=== PATIENT | female | born 1975 | race Caucasian/White ===

== ENCOUNTER 2017-05-07 14:28 | Emergency (ER) | payer BC, OTHER ==
[~2017-05-07] VITALS: Ht 170.2 cm; Wt 109.0 kg
[2017-05-07 14:30] VITALS: Ht 170.2 cm; Wt 109.0 kg
[2017-05-07] MEDS ORDERED: KETOROLAC 30 MG INJ IM STA (14:47)
[2017-05-07] MEDS ORDERED: HYDROCODONE/APAP (5/325) TAB PO ONE (15:00)
[2017-05-07] MEDS ORDERED: BACL10TA PO (15:02)
[2017-05-07] MEDS ORDERED: HYDR-906 PO (15:02)
[2017-05-07] MEDS ORDERED: IBUP-1542 PO (15:02)
--- NOTE | 2017-05-07 15:08 | ERD ---
ER Documentation Chief Complaint Chief Complaint pt bib family with c/o back pain since Thursday worse since yesterday HPI Patient is a 41-year-old female with no past medical history presents to the ED for concerns of lower back pain radiating down her right leg which started 4 days ago. Patient states she does recall lifting heavy chairs previous to her back pain starting. Patient states she saw a chiropractor yesterday and had an adjustment which did temporarily relieve her pain however it became worse today. Patient states the pain is worse when attempting to lie down or standing up. Patient denies taking any medications for symptoms. Patient denies any falls or trauma. Patient denies any fevers, chills, dysuria, frequency, hematuria, saddle anesthesia, urinary incontinence or stool incontinence. States that she is on her last day of her menstrual period. ROS All systems reviewed and are negative except as per history of present illness. Medications Home Meds Active Scripts Baclofen* (Baclofen*) 10 Mg Tablet, 10 MG PO Q8, #20 TAB Prov:RAINER OLEARY PA-C 05/07/17 Ibuprofen* (Motrin*) 600 Mg Tab, 600 MG PO Q6, #30 TAB Prov:RAINER OLEARY PA-C 05/07/17 Hydrocodone/Acetaminophen ([place] 5-325 Tablet) 1 Each Tablet, 1 TAB PO Q6H Y for PAIN, #7 TAB Prov:RAINER OLEARY PA-C 05/07/17 Allergies Allergies: Coded Allergies: No Known Allergy (Unverified , 04/24/14) PMhx/Soc Medical and Surgical Hx: pt denies Medical Hx History of Surgery: Yes (D&C) Anesthesia Reaction: No Hx Alcohol Use: Yes (OCCASSIONAL/SOCIAL ) Hx Substance Use: No Hx Tobacco Use: No Smoking Status: Never smoker Physical Exam Vitals Vital Signs Date Time Temp Pulse Resp B/P Pulse Ox O2 Delivery O2 Flow Rate FiO2 05/07/17 14:30 99.0 97 16 151/93 98 Physical Exam GENERAL: Well-developed, well-nourished female. Appears in no acute distress. HEAD: Normocephalic, atraumatic. EYES: Pupils are equally reactive bilaterally. EOMs grossly intact. No conjunctival erythema. NECK: Supple. No meningismus. Normal range of motion of the neck. No cervical midline tenderness noted. LUNG: Clear to auscultation bilaterally. No rhonchi, wheezing, rales or coarse breath sounds. HEART: Regular rate and rhythm. No murmurs, rubs or gallops. BACK: No midline tenderness. Tender to palpation of bilateral lumbar paraspinal muscles. Patient unable to lay down flat secondary to pain. EXTREMITIES: Equal pulses bilaterally. No peripheral clubbing, cyanosis or edema. NEUROLOGIC: Alert and oriented. Moving all four extremities without any difficulty. Normal speech. Steady gait. SKIN: Normal color. Warm and dry. No rashes or lesions. Results 24 hrs Current Medications Medications (Trade) Dose Ordered Sig/Sanaz Route PRN Reason Start Time Stop Time Status Last Admin Dose Admin Ketorolac Tromethamine (Toradol) 30 mg ONCE STAT IM 05/07/17 14:47 05/07/17 14:48 DC 05/07/17 15:24 Acetaminophen/ Hydrocodone Bitart ([place] (5/325)) 1 tab ONCE ONCE PO 05/07/17 15:00 05/07/17 15:01 DC 05/07/17 15:24 Procedures/MDM ED COURSE: The patient was stable throughout ED course. I kept the patient and/or family informed of laboratory and diagnostic imaging results throughout the ED course. DIAGNOSTIC IMAGING: Read by radiologist. DIAGNOSTIC IMAGING REPORT Patient: VENANCIO MCKEON : 1975 Age: 41 Sex: F MR #: [id number] DOS: 05/07/17 1447 Ordering MD: RAINER OLEARY PA-C Location: [facility] Room/Bed: PROCEDURE: XR Lumbar Spine. CLINICAL INDICATION: Lumbar spine pain. TECHNIQUE: AP, lateral, and cone-down lateral view of the lumbar spine were obtained. COMPARISON: No prior studies are available for comparison. FINDINGS: The alignment of the lumbar spine is within normal limits. The vertebral body heights and marrow density are normal in appearance. There is preservation of the intervertebral disc spaces. There is no significant facet spondylosis. The neural foramina appear patent. The paraspinal soft tissues unremarkable. The posterior elements are unremarkable. IMPRESSION: 1. Normal radiographs of the lumbar spine. 2. No evidence of fracture or significant degenerative disc disease. RPTAT: DD .Roger Otero MD, MD Date Time Electronically viewed and signed by .Roger Otero MD, MD on 05/07/2017 16: 08 .S/ CC: RAINER OLEARY PA-C PROCEDURES: None. MEDICATIONS GIVEN: Toradol, [place] Patient tolerated medication well with no adverse reactions. Patient reported improvement in pain. MEDICAL DECISION MAKING: This is a 41-year-old female presents with lower back pain which is radiating down her right leg 4 days. Denies any falls or trauma.. Vital signs were reviewed. Patient was afebrile. Patient denied any saddle anesthesia, urinary incontinence, bowel incontinence. Urine test is negative. Lumbar series was obtained and was negative. At this time, patient's presentation is most consistent with lower back pain with right-sided sciatica. Low suspicion for cauda equina syndrome, spinal fractures, epidural abscess, osteomyelitis, degenerative joint disease, pyelonephritis, nephrolithiasis. Patient was given a copy of all imaging studies obtained today. Patient was advised to follow-up with her primary care physician. Patient may need an MRI and an outpatient basis if symptoms persist. PRESCRIPTIONS: Ibuprofen Baclofen [place] Patient was advised to take either baclofen or [place]. Patient advised not to take these medications at the same time or when operating any machinery or driving. DISCHARGE: At this time, patient is stable for discharge and outpatient management. RICE therapy and ROM exercises were advised to avoid stiffness. I have instructed the patient to follow-up with his/her primary care physician in 1-2 days. I have discussed with the patient the possibility of needing to see an retail asset protection specialist for further workup and imaging if the pain persists. I have instructed the patient to promptly return to the ER for any new or worsening symptoms including increased pain, swelling, warmth, urinary incontinence, stool incontinence, weakness or numbness. The patient and/or family expressed understanding of and agreement with this plan. All questions were answered. Home care instructions were provided. Patient's blood pressure was elevated (>120/80) but appears stable without evidence of hypertensive emergency, hypertensive urgency or end-organ failure. I had discussion with the patient about the risks of hypertension. I have advised the patient to follow up with his/her primary care physician for outpatient monitoring and treatment for hypertension in 2-3 days. I have instructed the patient to return to the ER for any new or worsening symptoms including chest pain, shortness of breath, headache, blurred vision, confusion, nausea, vomiting or LOC. Disclaimer: Inadvertent spelling and grammatical errors are likely due to EHR/ dictation software use and do not reflect on the overall quality of patient care. Also, please note that the electronic time recorded on this note does not necessarily reflect the actual time of the patient encounter. Departure Diagnosis: Primary Impression: Back pain Back pain location: low back pain Chronicity: unspecified Back pain laterality: bilateral Sciatica presence: with sciatica Sciatica laterality: sciatica of right side Qualified Code: M54.41 - Bilateral low back pain with right-sided sciatica, unspecified chronicity Condition: Stable Patient Instructions: Back Pain W/ Sciatica Referrals: COMMUNITY CLINICS YOU HAVE RECEIVED A MEDICAL SCREENING EXAM AND THE RESULTS INDICATE THAT YOU DO NOT HAVE A CONDITION THAT REQUIRES URGENT TREATMENT IN THE EMERGENCY DEPARTMENT. FURTHER EVALUATION AND TREATMENT OF YOUR CONDITION CAN WAIT UNTIL YOU ARE SEEN IN YOUR DOCTORS OFFICE WITHIN THE NEXT 1-2 DAYS. IT IS YOUR RESPONSIBILITY TO MAKE AN APPOINTMENT FOR FOLOW-UP CARE. IF YOU HAVE A PRIMARY DOCTOR --you should call your primary doctor and schedule an appointment IF YOU DO NOT HAVE A PRIMARY DOCTOR YOU CAN CALL OUR PHYSICIAN REFERRAL HOTLINE AT IF YOU CAN NOT AFFORD TO SEE A PHYSICIAN YOU CAN CHOSE FROM THE FOLLOWING [facility] CLINICS [facility] [address] [facility]. [facility] [address] [facility]. [facility] [address] [facility]. [facility] [address] [facility]. [facility] [address] [facility]. [facility]. [address] [facility] YOU HAVE RECEIVED A MEDICAL SCREENING EXAM AND THE RESULTS INDICATE THAT YOU DO NOT HAVE A CONDITION THAT REQUIRES URGENT TREATMENT IN THE EMERGENCY DEPARTMENT. FURTHER EVALUATION AND TREATMENT OF YOUR CONDITION CAN WAIT UNTIL YOU ARE SEEN IN YOUR DOCTORS OFFICE WITHIN THE NEXT 1-2 DAYS. IT IS YOUR RESPONSIBILITY TO MAKE AN APPOINTMENT FOR FOLOW-UP CARE. IF YOU HAVE A PRIMARY DOCTOR --you should call your primary doctor and schedule and appointment IF YOU DO NOT HAVE A PRIMARY DOCTOR YOU CAN CALL OUR PHYSICIAN REFERRAL HOTLINE AT . IF YOU CAN NOT AFFORD TO SEE A PHYSICIAN YOU CAN CHOSE FROM THE FOLLOWING [facility]: [facility] [address] [place] [address] [facility] [address] [place] [address] [facility] [address] [place] [address] [facility], [facility] Hours: Mon-Thu 9:00 AM - 5:00 PM Additional Instructions: You may need to follow-up with an retail asset protection specialist if your symptoms persist. DO NOT TAKE BACLOFEN AND NORCO AT THE TIME. TAKE EITHER OR. Rest, ice, heat advised. Continue range of motion exercises to avoid back stiffness. Call your primary care doctor TOMORROW for an appointment during the next 1-2 days.See the doctor sooner or return here if your condition worsens before your appointment time. RAINER OLEARY PA-C May 07, 2017 15:08
--- NOTE | 2017-05-07 16:08 | RADRPT ---
PROCEDURE: XR Lumbar Spine. CLINICAL INDICATION: Lumbar spine pain. TECHNIQUE: AP, lateral, and cone-down lateral view of the lumbar spine were obtained. COMPARISON: No prior studies are available for comparison. FINDINGS: The alignment of the lumbar spine is within normal limits. The vertebral body heights and marrow de nsity are normal in appearance. There is preservation of the intervertebral disc spaces. There is no significant facet spondylosis. The neural foramina appear patent. The paraspinal soft tissues u nremarkable. The posterior elements are unremarkable. IMPRESSION: 1. Normal radiographs of the lumbar spine. 2. No evidence of fracture or significant degenerative disc disease. RPTAT: DD .Roger Otero MD, MD Date Time Electronically viewed and signed by .Roger Otero MD, on 05/07/2017 16:08 .S/
== END 2017-05-07 16:46 | disposition home or self-care (01) ==
LOC: FTE 14:28
DX: M54.41 Lumbago with sciatica, right side (principal)
CPT/HCPCS: 72100; 96372; 99284; J1885

== ENCOUNTER → 2017-08-31 | Outpatient (CLI) | END | disposition home or self-care (01) ==

== ENCOUNTER 2018-11-12 11:15 | Emergency (ER) | payer BC ==
[~2018-11-12] VITALS: Ht 170.2 cm; Wt 94.0 kg
[~2018-11-12 11:15] MED LIST: BACL10TA PO; HYDR-4011 PO; IBUP-1542 PO
[2018-11-12 11:20] VITALS: BP 133/83; PULSE 68; RESP 16; Ht 170.2 cm; Wt 94.0 kg
[2018-11-12] MEDS ORDERED: NAPR-985 PO (11:49)
[2018-11-12] MEDS ORDERED: CYCL10TA7 PO (11:49)
[2018-11-12] MEDS ORDERED: ACET500C5 PO (11:51)
--- NOTE | 2018-11-12 12:25 | ERD ---
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 States that she is wearing her helmet. Reports that she did not lose consciousness. States that she has upper back pain. Reports that she took some ibuprofen 800 mg without any relief. States that her muscles feel sore. Denies any loss of consciousness. Denies any fever, chills, nausea, vomiting, diarrhea, saddle anesthesia, urine or bowel incontinence. ROS All systems reviewed and are negative except as per history of present illness. Medications Home Meds Active Scripts Acetaminophen* (Tylophen*) 500 Mg Capsule, 1 CAP PO Q6H PRN for PAIN AND OR ELEVATED TEMP, #20 CAP Prov:NEIDA RAMÍREZ PA-C 11/12/18 Cyclobenzaprine Hcl* (Cyclobenzaprine Hcl*) 10 Mg Tablet, 10 MG PO TID, #15 TAB Prov:NEIDA RAMÍREZ PA-C 11/12/18 Baclofen* (Baclofen*) 10 Mg Tablet, 10 MG PO Q8, #20 TAB Prov:RAINER OLEARY PA-C 05/07/17 Ibuprofen* (Motrin*) 600 Mg Tab, 600 MG PO Q6, #30 TAB Prov:RAINER OLEARY PA-C 05/07/17 Hydrocodone/Acetaminophen ([place] 5-325 Tablet) 1 Each Tablet, 1 TAB PO Q6H PRN for PAIN, #7 TAB Prov:RAINER OLEARY PA-C 05/07/17 Allergies Allergies: Coded Allergies: No Known Allergy (Unverified , 04/24/14) PMhx/Soc History of Surgery: Yes (D&C) Anesthesia Reaction: No Hx Alcohol Use: Yes (OCCASSIONAL/SOCIAL ) Hx Substance Use: No Hx Tobacco Use: No Smoking Status: Never smoker FmHx Family History: No diabetes, No coronary disease Physical Exam Vitals Vital Signs Date Temp Pulse Resp B/P (MAP) Pulse Ox O2 O2 Flow FiO2 Time Delivery Rate 11/12/18 98.7 68 16 133/83 97 11:20 (100) Physical Exam Const: [id number], well-nourished. In no acute distress. Head: Atraumatic, normocephalic. No hematoma. No dawson sign. No raccoon eyes. Eyes: Normal Conjunctiva without injection. No purulent discharge. PERRLA. EOMI ENT: Normal external ear. Ear canal without erythema. Tympanic membrane pearly martino without effusion or bulging. No hemotympanum. Nasal canal clear with normal turbinates. Moist oropharynx without tonsillar exudates. Non-erythematous pharynx. Uvula midline. No drooling. No trismus. Neck: No cervical midline tenderness. Full range of motion. No meningismus. No cervical lymphadenopathy. No JVD. Resp: Clear to auscultation bilaterally. No wheezing, rhonchi, rales, or crackles. No accessory muscle use. No retractions. Cardio: Regular rate and rhythm. No murmurs, rubs or gallops. Abd: Soft, non tender, non distended. Normal bowel sounds. No palpable masses. No rebound tenderness. No guarding. Negative McBurney's Point. Negative Mendez's Sign. Skin: Normal skin turgor. No petechiae or rashes. No ecchymosis. Back: No midline tenderness. No CVA tenderness. Tender to palpation of the bilateral trapezius muscles. Full range of motion with flexion, extension, rotational movements. Ext: No cyanosis, or edema. Distal pulses intact bilaterally. Neur: Awake and alert. Normal gait. Normal coordination. Cranial Nerves II- VII intact. Normal finger to nose. Muscle strength 5/5. Sensation intact. Psych: Normal Mood and Affect Procedures/MDM 43-year-old female patient with no significant past medical history presents the ED stating that she fell backwards while playing [employer], patient was wearing a helmet.-year-old, patient does not need to obtain a CT at this time. Patient has no loss of consciousness. Patient is not complaining of a headache. Patient is not vomiting. Patient reports that she has upper muscular pain likely the trapezius. Low suspicion for pneumothorax, pleural effusion, pneumonia, cervical fracture, scapular fracture, or other emergent conditions. Patient is ambulating here in the ED without difficulty. Denies saddle anesthesia, numbness or tingling, urine or bowel incontinence, weakness. Low suspicion for cauda equina syndrome, cord compression, nephrolithiasis, aortic aneurysm, aortic dissection, epidural abscess, spinal hematoma, malignancy, pyelonephritis, or other emergent conditions. Diagnosis: Headache, Back injury Discharge medications: Tylenol, Flexeril Follow up with primary care physician in 1-2 days. Instructed patient to return to the ED sooner for any worsening symptoms. Patient's questions were answered. Patient is hemodynamically stable. Patient understood and agreed with discharge plan. Patient discharged stable. Disclaimer: Inadvertent spelling and grammatical errors are likely due to EHR/dictation software use and do not reflect on the overall quality of patient care. Also, please note that the electronic time recorded on this note does not necessarily reflect the actual time of the patient encounter. Departure Diagnosis: Primary Impression: Headache Headache type: unspecified Headache chronicity pattern: unspecified pattern Intractability: not intractable Qualified Codes: R51 - Headache Additional Impression: Back injury Encounter type: initial encounter Qualified Codes: S39.92XA - Unspecified injury of lower back, initial encounter Condition: Stable Patient Instructions: Back Pain (Acute Or Chronic), HEAD INJURY with Wake-Up (Adult) Referrals: FERN ANDERSON MD (PCP) [facility] YOU HAVE RECEIVED A MEDICAL SCREENING EXAM AND THE RESULTS INDICATE THAT YOU DO NOT HAVE A CONDITION THAT REQUIRES URGENT TREATMENT IN THE EMERGENCY DEPARTMENT. FURTHER EVALUATION AND TREATMENT OF YOUR CONDITION CAN WAIT UNTIL YOU ARE SEEN IN YOUR DOCTORS OFFICE WITHIN THE NEXT 1-2 DAYS. IT IS YOUR RESPONSIBILITY TO MAKE AN APPOINTMENT FOR FOLOW-UP CARE. IF YOU HAVE A PRIMARY DOCTOR --you should call your primary doctor and schedule an appointment IF YOU DO NOT HAVE A PRIMARY DOCTOR YOU CAN CALL OUR PHYSICIAN REFERRAL HOTLINE AT IF YOU CAN NOT AFFORD TO SEE A PHYSICIAN YOU CAN CHOSE FROM THE FOLLOWING [facility] CLINICS [facility] [address] [facility]. [facility] [address] [facility]. [facility] [address] [facility]. [facility] [address] [facility]. [facility] [address] [facility]. [facility] [address] [facility]. [facility] YOU HAVE RECEIVED A MEDICAL SCREENING EXAM AND THE RESULTS INDICATE THAT YOU DO NOT HAVE A CONDITION THAT REQUIRES URGENT TREATMENT IN THE EMERGENCY DEPARTMENT. FURTHER EVALUATION AND TREATMENT OF YOUR CONDITION CAN WAIT UNTIL YOU ARE SEEN IN YOUR DOCTORS OFFICE WITHIN THE NEXT 1-2 DAYS. IT IS YOUR RESPONSIBILITY TO MAKE AN APPOINTMENT FOR FOLOW-UP CARE. IF YOU HAVE A PRIMARY DOCTOR --you should call your primary doctor and schedule and appointment IF YOU DO NOT HAVE A PRIMARY DOCTOR YOU CAN CALL OUR PHYSICIAN REFERRAL HOTLINE AT . IF YOU CAN NOT AFFORD TO SEE A PHYSICIAN YOU CAN CHOSE FROM THE FOLLOWING [facility] INSTITUTIONS: [facility] [address] [place] [address] [facility] [address] [place], [place] [id number] [place] [address] [address] [place] [address] [facility] URGENT CARE/SPECIALTIES Additional Instructions: Call your primary care doctor TOMORROW for an appointment during the next 2-3 days.See the doctor sooner or return here if your condition worsens before your appointment time. NEIDA RAMÍREZ PA-C November 12, 2018 12:25
== END 2018-11-12 12:09 | disposition home or self-care (01) ==
LOC: FTE 11:15
DX: S39.92XA Unspecified injury of lower back, initial encounter (principal); S09.90XA Unspecified injury of head, initial encounter; W18.39XA Other fall on same level, initial encounter; Y92.9 Unspecified place or not applicable
CPT/HCPCS: 99283